=== PATIENT | female | born 1955 | race Caucasian/White ===

== ENCOUNTER → 2020-07-25 10:06 | Outpatient (CLI) | payer OTHER, SELFPAY ==
--- NOTE | 2020-07-25 10:45 | MRI_ITS ---
STUDY: MRI RIGHT FOREFOOT WITHOUT CONTRAST REASON FOR EXAM: Right forefoot pain, evaluate for capsulitis, plantar plate tear of the second metatarsophalangeal joint. TECHNIQUE: Standardized fat and water weighted pulse sequences were obtained in all 3 orthogonal planes. COMPARISON: None. FINDINGS: There is chondral thinning of the metatarsophalangeal joint of the hallux and hallux valgus deformity (T2 series 8 image 12). There is arthrosis of the tibial and fibular sesamoids-first metatarsal articulations with chondral thinning and subchondral bone edema (inversion recovery series 7 images 16-18). Normal interphalangeal joint of the hallux. Normal proximal and distal phalanges of the great toe. Normal medial and lateral heads of the flexor hallucis brevis tendons. Normal flexor and extensor hallucis longus tendons. There is mild edema of the lateral joint capsule of the second metatarsophalangeal joint (inversion recovery axial image 20). The plantar plate of the second metatarsophalangeal joint appears intact (inversion recovery sagittal images 12-14). Normal third through fifth metatarsophalangeal (MTP) joints. Normal interphalangeal joints of the second through fifth toes. Normal proximal, middle and distal phalanges of the second through fifth toes. There is a small intermetatarsal neuroma of the second webspace (T1 series 5 image 23) measuring 0.3 cm in transverse dimension. Normal flexor and extensor tendons of the second through fifth toes. There is no metatarsal stress fracture. There is arthrosis of the first through fourth tarsometatarsal joints with chondral thinning and subchondral bone edema/cystic change (inversion recovery sagittal images 10-20) Normal intrinsic muscles of the forefoot. There is a pressure lesion in the subcutis adipose space plantar to the first metatarsophalangeal joint (T1 series 5 images 20, 21). There is a pressure lesion in the subcutis adipose space plantar to the fourth metatarsophalangeal joint (T1 series 5 images 21, 22). There is a pressure lesion in the subcutis adipose space plantar to the fifth metatarsophalangeal joint (T1 series 15-18). There is mild edema in the dorsal subcutis adipose space. MRI/Lower Ext/No Jt/w/o IMPRESSION: Mild capsulitis of the second metatarsophalangeal joint without demonstrated tear of the plantar plate of the second metatarsophalangeal joint. 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 Small intermetatarsal neuroma of the second webspace. Arthrosis of the first through fourth tarsometatarsal joints. Pressure lesions plantar to the first, fourth and fifth metatarsophalangeal joints. Electronically Signed: Basil Real MD at 12:37 EDT Tel , Service support ,
== END ==
PROVIDERS: PCP Family Medicine; Referring Provider Podiatrist; Visit Provider Podiatrist
DX: M77.9 Enthesopathy, unspecified (principal); M20.11 Hallux valgus (acquired), right foot
CPT/HCPCS: 73718